=== PATIENT | female | born 1995 | race Hispanic/Latino ===

== ENCOUNTER 2018-10-25 15:11 | Outpatient (CLI) | payer MEDICAID ==
[2018-10-25] MEDS ORDERED: LACTATED RINGERS 1,000 ML ONE (16:06)
[2018-10-25 16:22] LABS: Bacteria,Urine 1+ /HPF (Negative); Bilirubin,Urine NEG (Negative); Blood,Urine NEG (Negative); Color,Urine Yellow (Yellow); Mucus,Urine FEW /HPF; Protein,Urine <15 mg/dL mg/dL (Negative); Urobilinogen,Urine < 2.0 mg/dL (<2.0); WBC,Urine < 1.0 /HPF (0.0-6.0)
[2018-10-25] MEDS ORDERED: LACTATED RINGERS 1,000 ML IV SCH (17:00)
[2018-10-25 17:29] VITALS: BP 103/64
== END 2018-10-25 17:51 | disposition home or self-care (01) ==
LOC: TRG 15:11
PROVIDERS: ATTEND Obstetrics & Gynecology
DX: O47.03 False labor before 37 completed weeks of gestation, third trimester (principal); Z3A.30 30 weeks gestation of pregnancy
CPT/HCPCS: 81001; J7120

== ENCOUNTER 2018-12-03 17:30 | Outpatient (CLI) | payer MEDICAID ==
[2018-12-03 17:52] VITALS: BP 105/70
[2018-12-03] MEDS ORDERED: LACTATED RINGERS 1,000 ML IV SCH (18:00)
[2018-12-03 18:29] LABS: Bacteria,Urine 1+ /HPF (Negative); Bilirubin,Urine NEG (Negative); Blood,Urine NEG (Negative); Color,Urine Straw (Yellow); Mucus,Urine FEW /HPF; Protein,Urine <15 mg/dL mg/dL (Negative); Urobilinogen,Urine < 2.0 mg/dL (<2.0)
[2018-12-03] MEDS ORDERED: BRETHINE SUB-Q ONE (18:51)
[2018-12-03] MEDS ORDERED: VISTARIL PO ONE (21:00)
== END 2018-12-03 20:42 | disposition home or self-care (01) ==
LOC: TRG 17:30
PROVIDERS: ATTEND Obstetrics & Gynecology
DX: O26.853 Spotting complicating pregnancy, third trimester (principal); O26.893 Other specified pregnancy related conditions, third trimester; R10.9 Unspecified abdominal pain; O47.03 False labor before 37 completed weeks of gestation, third trimester; Z3A.35 35 weeks gestation of pregnancy
CPT/HCPCS: 59025; 81001; 96360; 96361; 96372; J3105; J7120; Q0177

== ENCOUNTER 2019-01-06 17:33 | Outpatient (CLI) | payer MEDICAID ==
[2019-01-06] MEDS ORDERED: LACTATED RINGERS 500 ML IV ONE (18:44)
[2019-01-06] MEDS ORDERED: LACTATED RINGERS 1,000 ML IV SCH (19:00)
[2019-01-06 19:03] LABS: Bacteria,Urine 1+ /HPF (Negative); Bilirubin,Urine NEG (Negative); Blood,Urine NEG (Negative); Color,Urine Yellow (Yellow); Mucus,Urine FEW /HPF; Protein,Urine <15 mg/dL mg/dL (Negative); Urobilinogen,Urine < 2.0 mg/dL (<2.0)
[2019-01-06 19:30] LABS: Hematocrit 32.7 % (30.3-42.9); Hemoglobin 10.7 gm/dl (10.1-14.3); Mean Corpuscular HGB Conc 33 % (30-34); Mean Corpuscular Volume 80 fl (79-97); Platelet Count 183 K/mm3 (140-440); Red Blood Count 4.11 M/mm3 (3.65-5.03); Red Cell Distribution Width 16.2 % (13.2-15.2)
[2019-01-06 19:46] LABS: Alanine Aminotransferase 7 units/L (7-56); Uric Acid 5.2 mg/dL (3.5-7.6)
[2019-01-06 20:13] VITALS: BP 112/73
--- NOTE | 2019-01-06 22:58 | Ultrasound Report ---
Limited OB ultrasound with biophysical profile. 01/06/2019. HISTORY: Evaluate well-being. Biophysical profile is normal at 88. survey demonstrates a single viable intrauterine in the cephalic position. Amniotic f luid index is 172 bpm. Amniotic fluid index is normal measuring 9.2 cm. IMPRESSION: 1. Normal biophysical profile 09/23. 2. Single viable intrauterine . Signer Name: Thai Londono MD Signed: 01/06/2019 10:54 PM Workstation Name: [id number]
== END 2019-01-06 22:05 | disposition home or self-care (01) ==
LOC: TRG 17:33
PROVIDERS: ATTEND Obstetrics & Gynecology
DX: O26.893 Other specified pregnancy related conditions, third trimester (principal); R51 Headache; O99.89 Other specified diseases and conditions complicating pregnancy, childbirth and the puerperium; O48.0 Post-term pregnancy; H53.8 Other visual disturbances; O47.03 False labor before 37 completed weeks of gestation, third trimester; Z3A.40 40 weeks gestation of pregnancy
CPT/HCPCS: 36415; 59025; 76815; 76819; 81001; 82565; 83615; 84450; 84460; 84550; 85027; J7120; 96360

== ENCOUNTER 2019-01-12 08:36 | Inpatient (IN) | payer MEDICAID ==
[2019-01-12] MEDS ORDERED: LIDOCAINE (2%) 20 MG/1 ML VIAL 20 ML MDV INFILTRATI NR (10:30)
[2019-01-12] MEDS ORDERED: TERBUTALINE 1 MG/1 ML INJ SUB-Q PRN (10:30)
[2019-01-12] MEDS ORDERED: ePHEDrine SULFATE 50 MG/1 ML INJ IV PRN (10:30)
[2019-01-12] MEDS ORDERED: ONDANSETRON 4 MG/2 ML INJ IV PRN (10:30)
[2019-01-12] MEDS ORDERED: AMPICILLIN/NS 2 GM/100 ML 2 GM/100 ML BAG IV ONE ×2 (10:30→16:00)
[2019-01-12] MEDS ORDERED: fentaNYL 100 MCG/2 ML INJ IV PRN (10:30)
[2019-01-12] MEDS ORDERED: OXYTOCIN 20 UNIT/1000ML DRIP 20 UNITS/1,000 ML BAG IV SCH (11:00)
--- NOTE | 2019-01-12 12:21 | History and Physical Report ---
<MERARY SHAH - Last Filed: 01/12/19 12:16> History of Present Illness Date of examination: 01/12/19 (Post dates IOL) Date of admission: 01/12/2019 Chief complaint: Pt has no c/o ctxs or HAs, pt made aware of GBS positive, tx per protocol History of present illness: EDC Confirmation: 01/05/2019 Gestational Age: 23 weeks Past History : 2 Term Births: 1 Living Children: 1 Para: 1 # 1 Delivery date: 2017 Weeks Gestation: 41 Delivery type: Anesthesia type: epidural Delivery location: [place], [place] Sex: Male weight: 9-15 Comments: anemia Past Medical History: Negative Past Medical History Past Surgical History: Negative Past Surgical History Past Medical History 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 of genital herpes: no Partner hx. of genital herpes: no Rash, Viral, or Febrile illness since last LMP? no Varicella/Chicken Pox Status: Immunized Genetic History Congenital Heart Defect: Mom: no Dad: no Wili Disease: Mom: no Dad: no Thalassemia Mom: no Dad: no Neural Tube Defect Mom: no Dad: no Down's Syndrome Mom: no Dad: no Chase-Sachs Mom: no Dad: no Sickle Cell Disease/Trait Mom: no Dad: no Hemophilia Mom: no Dad: no Muscular Dystrophy Mom: no Dad: no Cystic Fibrosis Mom: no Dad: no Betty Chorea Mom: no Dad: no Mental Retardation Mom: no Dad: no Fragile X Mom: no Dad: no Other Genetic/Chromosomal Disorder Mom: no Dad: yes Comments: sister of trisomy 18 a few hours after Child w/other defect Mom: no Dad: no Enviromental Exposures Xray Exposure: no Medication, drug, or alcohol use since LMP: no Chemical/Other Exposure: no Exposure to Cat Liter: no Hx of Parvovirus (Fifth Disease): no Occupational Exposure to Children: none Current Allergies: No known allergies Past History - Obstetrical History Expected Date of Delivery: 01/05/19 Actual Gestation: 41 Week(s) 0 Day(s) : 2 Para: 1 Hx # Term Pregnancies: 1 Number of Pregnancies: 0 Spontaneous Abortions: 0 Induced : 0 Number of Living Children: 1 Medications and Allergies Allergies Allergy/AdvReac Type Severity Reaction Status Date / Time No Known Allergies Allergy Verified 10/25/18 16:04 Active Meds: Active Medications Ephedrine Sulfate (Ephedrine Sulfate) 10 mg IV Q2M PRN PRN Reason: Hypotension Fentanyl (Sublimaze) 100 mcg IV Q2H PRN PRN Reason: Labor Pain Oxytocin/Sodium Chloride (Pitocin/Ns 20 Unit/1000ml Drip) 20 units in 1,000 mls @ 125 mls/hr IV DIRECT HENRY Oxytocin/Sodium Chloride (Pitocin/Ns 30 Unit/500ml) 30 units in 500 mls @ 4 mls/hr IV Q30MIN HENRY; Protocol Lactated Ringer's (Lactated Ringers) 1,000 mls @ 125 mls/hr IV DIRECT HENRY Ampicillin Sodium (Ampicillin/Ns 1 Gm/50 Ml) 1 gm in 50 mls @ 100 mls/hr IV Q4HR HENRY; Protocol Lidocaine (Xylocaine 2%) 20 ml INFILTRATI ONCE NR Stop: 01/12/19 23:00 Mineral Oil (Mineral Oil) 30 ml PO QHS PRN PRN Reason: Constipation Ondansetron HCl (Zofran) 4 mg IV Q8H PRN PRN Reason: Nausea And Vomiting Terbutaline Sulfate (Brethine) 0.25 mg SUB-Q ONCE PRN PRN Reason: Hyperstimulation/Hypertonicity Stop: 01/12/19 22:00 Results All other labs normal. GBS Positive HBsAg Screen Negative Negative *1 RPR Non Reactive Non Reactive *2 Rubella Antibodies, IgG 3.38 index Immune >0.99 *3 Non-immune <0.90 Equivocal 0.90 - 0.99 Immune >0.99 ABO Grouping O *4 Rh Factor Positive *5 Please note: Prior records for this patient's ABO / Rh type are not available for additional verification. Antibody Screen Negative Negative *6 WBC 8.5 x10E3/uL 3.4-10.8 *7 RBC [L] 3.65 x10E6/uL 3.77-5.28 *8 Hemoglobin [L] 10.0 g/dL 11.1-15.9 *9 Hematocrit [L] 31.8 % 34.0-46.6 *10 MCV 87 fL 79-97 *11 MCH 27.4 pg 26.6-33.0 *12 MCHC [L] 31.4 g/dL 31.5-35.7 *13 RDW 14.4 % 12.3-15.4 *14 Platelets [L] 147 x10E3/uL 150-450 *15 Neutrophils 77 % Not Estab. *16 Lymphs 13 % Not Estab. *17 Monocytes 7 % Not Estab. *18 Eos 2 % Not Estab. *19 Basos 0 % Not Estab. *20 ! Immature Cells <No Reported Value> *21 Neutrophils (Absolute) 6.6 x10E3/uL 1.4-7.0 *22 Lymphs (Absolute) 1.1 x10E3/uL 0.7-3.1 *23 Monocytes(Absolute) 0.6 x10E3/uL 0.1-0.9 *24 Eos (Absolute) 0.1 x10E3/uL 0.0-0.4 *25 Baso (Absolute) 0.0 x10E3/uL 0.0-0.2 *26 ! Immature Granulocytes 1 % Not Estab. *27 ! Immature Grans (Abs) 0.1 x10E3/uL 0.0-0.1 *28 ! NRBC <No Reported Value> *29 Hematology Comments: <No Reported Value> *30 Tests: (2) Panel 971103 ([id number]) HIV Screen 4th Generation wRfx Non Reactive Non Reactive *31 Tests: (3) Gest. Diabetes 1-Hr Screen (505702) ! Gestational Diabetes Screen 89 mg/dL 65-139 *32 According to ADA, a glucose threshold of >139 mg/dL after 50-gram load identifies approximately 80% of women with gestational diabetes mellitus, while the sensitivity is further increased to approximately 90% by a threshold of >129 mg/dL. Tests: (4) HCV Ab w/Rflx to Verification (130506) ! HCV Ab <0.1 s/co ratio 0.0-0.9 *33 Tests: (5) Comment: (298166) ! Comment: SPRCS *34 Non reactive HCV antibody screen is consistent with no HCV infection, unless recent infection is suspected or other evidence exists to indicate HCV infection. Tests: (6) Urine Culture, Routine (605244) Urine Culture, Routine Final report *35 Tests: (7) Result (150112) ! Result 1 No growth *36 Assessment and Plan 23 y.o. at 40.6 wks presenting for IOL, GBS positive, during assessment of pt states she was 2cm on last Thursday in triage. IOL delayed due to no labor rooms available. All orders in EMR. DR. Montano aware of admission and will complete physical examination - Patient Problems (1) Group B Streptococcus carrier state affecting Onset Date: ~01/12/19 Current Visit: Yes Status: Acute Plan to address problem: Ampicillin per protocol (2) 40 weeks gestation of Onset Date: ~01/12/19 Current Visit: Yes Status: Acute Plan to address problem: Pt is 40.6 wks today IOL for post dates <MARICARMEN GONZALEZ - Last Filed: 01/13/19 09:39> History of Present Illness Date of admission: 01/12/19 10:30 Medications and Allergies Active Meds: Active Medications Ephedrine Sulfate (Ephedrine Sulfate) 10 mg IV Q2M PRN PRN Reason: Hypotension Fentanyl (Sublimaze) 100 mcg IV Q2H PRN PRN Reason: Labor Pain Last Admin: 01/13/19 02:35 Dose: 100 mcg Documented by: Oxytocin/Sodium Chloride (Pitocin/Ns 20 Unit/1000ml Drip) 20 units in 1,000 mls @ 125 mls/hr IV DIRECT HENRY Last Admin: 01/13/19 05:40 Dose: 1,200 mls/hr Documented by: Oxytocin/Sodium Chloride (Pitocin/Ns 30 Unit/500ml) 30 units in 500 mls @ 4 mls/hr IV Q30MIN HENRY; Protocol Last Admin: 01/13/19 03:30 Dose: 4 mls/hr, 4 mls/hr Documented by: Lactated Ringer's (Lactated Ringers) 1,000 mls @ 125 mls/hr IV DIRECT HENRY Last Admin: 01/12/19 22:40 Dose: 125 mls/hr Documented by: Fentanyl/Bupivacaine/Sodium Chlor (Fentanyl-Bupiv 2 Mcg/Ml-0.125%) 200 mcg in 100 mls @ 12 mls/hr EPIDURAL TITR HENRY; Protocol Last Infusion: 01/13/19 06:09 Dose: 0 mls/hr Documented by: Mineral Oil (Mineral Oil) 30 ml PO QHS PRN PRN Reason: Constipation Naloxone HCl (Naloxone) 0.2 mg IV Q5M PRN PRN Reason: Respiratory sedation Ondansetron HCl (Zofran) 4 mg IV Q8H PRN PRN Reason: Nausea And Vomiting - Vital Signs Vital signs: Vital Signs Pulse BP 93 H 117/57 01/12/19 13:23 01/12/19 13:23 Temp Pulse Resp BP Pulse Ox 97.8 F 82 18 108/55 96 01/13/19 04:00 01/13/19 06:34 01/13/19 04:00 01/13/19 06:34 01/13/19 05:13 Results Result Diagrams: 01/12/19 13:01 01/12/19 13:01 Abnormal lab results 01/12/19 01/12/19 Range/Units 13:01 13:01 WBC 12.0 H (4.5-11.0) K/mm3 MCH 26 L (28-32) pg RDW 16.7 H (13.2-15.2) % Creatinine 0.6 L (0.7-1.2) mg/dL All other labs normal.
[2019-01-12 13:41] LABS: Hematocrit 33.9 % (30.3-42.9); Hemoglobin 10.9 gm/dl (10.1-14.3); Mean Corpuscular HGB Conc 32 % (30-34); Mean Corpuscular Volume 80 fl (79-97); Platelet Count 186 K/mm3 (140-440); Red Blood Count 4.25 M/mm3 (3.65-5.03); Red Cell Distribution Width 16.7 % (13.2-15.2)
--- NOTE | 2019-01-12 14:01 | Progress Note ---
Assessment and Plan - Patient Problems (1) 41 weeks gestation of Current Visit: Yes Status: Acute Plan to address problem: Will start pitocin, plan of care explained. Questions answered, she voiced understanding and agrees with plan (2) Group B Streptococcus carrier state affecting Onset Date: ~01/12/19 Current Visit: Yes Status: Acute (3) Migraine Current Visit: Yes Status: Chronic (4) Poor dental hygiene Current Visit: Yes Status: Chronic Subjective - Subjective Date of service: 01/12/19 Patient reports: movement normal, contractions, no new complaints, no vaginal bleeding Objective - Vital Signs Vital Signs: Vital Signs - 12hr 01/12/19 13:23 Pulse Rate 93 H Blood Pressure 117/57 - Exam Breasts: deferred Lungs: Normal air movement Vulva: both: normal Uterus: Present: fundal height above umbilicus. Absent: tenderness FHR: category 1 Uterine Contraction Monitor Mode: External Cervical Dilatation: 2.5 Cervical Effacement Percentage: 50 station: -2 Uterine Contraction Pattern: Irregular Extremities: normal Deep Tendon Reflex Grade: Normal +2 - Labs Labs: Abnormal Labs 01/12/19 13:01 WBC 12.0 H MCH 26 L RDW 16.7 H Laboratory Results - last 24 hr 01/12/19 13:01 WBC 12.0 H RBC 4.25 Hgb 10.9 Hct 33.9 MCV 80 MCH 26 L MCHC 32 RDW 16.7 H Plt Count 186
[2019-01-12 14:04] LABS: Alanine Aminotransferase 7 units/L (7-56); Uric Acid 5.7 mg/dL (3.5-7.6)
[2019-01-12] MEDS: OXYTOCIN DRIP 30 UNITS/500 ML BAG IV SCH (14:30)
[2019-01-12] MEDS: LACTATED RINGERS 1,000 ML IV SCH ×2 (14:30→22:40)
--- NOTE | 2019-01-12 19:35 | Progress Note ---
Assessment and Plan Continue pitocin - Patient Problems (1) 41 weeks gestation of Current Visit: Yes Status: Acute (2) Group B Streptococcus carrier state affecting Onset Date: ~01/12/19 Current Visit: Yes Status: Acute (3) Migraine Current Visit: Yes Status: Chronic (4) Poor dental hygiene Current Visit: Yes Status: Chronic Subjective - Subjective Date of service: 01/12/19 Principal diagnosis: Post term IOL Patient reports: movement normal, contractions, no new complaints, no vaginal bleeding Objective - Vital Signs Vital Signs: Vital Signs - 12hr 01/12/19 01/12/19 01/12/19 13:23 14:46 15:46 Pulse Rate 93 H 96 H 100 H Blood Pressure 117/57 106/58 109/64 01/12/19 01/12/19 01/12/19 16:46 17:46 18:46 Pulse Rate 95 H 92 H 94 H Blood Pressure 110/64 133/74 119/82 01/12/19 19:19 Pulse Rate 103 H Blood Pressure 114/64 - Exam Breasts: deferred Cardiovascular: Regular rate Lungs: Normal air movement Abdomen: Absent: tenderness Vulva: both: normal Uterus: Present: fundal height above umbilicus. Absent: tenderness FHR: category 1 Uterine Contraction Monitor Mode: External Cervical Dilatation: 3.5 Cervical Effacement Percentage: 50 station: -2 Uterine Contraction Pattern: Regular Extremities: normal Deep Tendon Reflex Grade: Normal +2 - Labs Labs: Abnormal Labs 01/12/19 01/12/19 13:01 13:01 WBC 12.0 H MCH 26 L RDW 16.7 H Creatinine 0.6 L Laboratory Results - last 24 hr 01/12/19 01/12/19 01/12/19 13:01 13:01 13:01 WBC 12.0 H RBC 4.25 Hgb 10.9 Hct 33.9 MCV 80 MCH 26 L MCHC 32 RDW 16.7 H Plt Count 186 Creatinine 0.6 L Estimated GFR > 60 Uric Acid 5.7 AST 15 ALT 7 Syphilis IgG Antibody Non-reactive Blood Type Antibody Screen 01/12/19 13:03 WBC RBC Hgb Hct MCV MCH MCHC RDW Plt Count Creatinine Estimated GFR Uric Acid AST ALT Syphilis IgG Antibody Blood Type O POSITIVE Antibody Screen Negative
[2019-01-12] MEDS ORDERED: MINERAL OIL 30 ML ORAL LIQD PO PRN (22:00)
[2019-01-12] MEDS: AMPICILLIN/NS 1 GM/50 ML 1 GM/50 ML BAG IV SCH (22:54)
[2019-01-13] MEDS: AMPICILLIN/NS 1 GM/50 ML 1 GM/50 ML BAG IV SCH (03:20)
--- NOTE | 2019-01-13 03:26 | Progress Note ---
Assessment and Plan AROM,scant clear, with placement of IUPC w/o difficulty. Restart Pitocin Plan of care discussed, she agrees - Patient Problems (1) 41 weeks gestation of Current Visit: Yes Status: Acute (2) Group B Streptococcus carrier state affecting Onset Date: ~01/12/19 Current Visit: Yes Status: Acute (3) Migraine Current Visit: Yes Status: Chronic (4) Poor dental hygiene Current Visit: Yes Status: Chronic Subjective - Subjective Date of service: 01/13/19 Principal diagnosis: Post term IOL Patient reports: movement normal, contractions, no new complaints, no vaginal bleeding Objective - Vital Signs Vital Signs: Vital Signs - 12hr 01/12/19 01/12/19 01/12/19 15:46 16:46 17:46 Pulse Rate 100 H 95 H 92 H Blood Pressure 109/64 110/64 133/74 01/12/19 01/12/19 01/12/19 18:46 19:19 19:47 Pulse Rate 94 H 103 H 91 H Blood Pressure 119/82 114/64 108/55 01/12/19 01/12/19 01/12/19 20:47 21:47 22:49 Pulse Rate 88 96 H 86 Blood Pressure 121/58 128/71 129/89 01/13/19 01/13/19 01:47 02:47 Pulse Rate 104 H 93 H Blood Pressure 110/84 129/57 - Exam Breasts: deferred Lungs: Normal air movement Abdomen: Absent: tenderness Vulva: both: normal Uterus: Present: fundal height above umbilicus. Absent: tenderness FHR: category 1 Uterine Contraction Monitor Mode: External Cervical Dilatation: 5 Cervical Effacement Percentage: 70 station: -1 Uterine Contraction Pattern: Irregular Uterine Contraction Intensity: Moderate Extremities: normal Deep Tendon Reflex Grade: Normal +2 - Labs Labs: Abnormal Labs 01/12/19 01/12/19 13:01 13:01 WBC 12.0 H MCH 26 L RDW 16.7 H Creatinine 0.6 L Laboratory Results - last 24 hr 01/12/19 01/12/19 01/12/19 13:01 13:01 13:01 WBC 12.0 H RBC 4.25 Hgb 10.9 Hct 33.9 MCV 80 MCH 26 L MCHC 32 RDW 16.7 H Plt Count 186 Creatinine 0.6 L Estimated GFR > 60 Uric Acid 5.7 AST 15 ALT 7 Syphilis IgG Antibody Non-reactive Blood Type Antibody Screen 01/12/19 13:03 WBC RBC Hgb Hct MCV MCH MCHC RDW Plt Count Creatinine Estimated GFR Uric Acid AST ALT Syphilis IgG Antibody Blood Type O POSITIVE Antibody Screen Negative
[2019-01-13] MEDS: OXYTOCIN DRIP 30 UNITS/500 ML BAG IV SCH (03:30)
[2019-01-13] MEDS ORDERED: SODIUM CHLORIDE P/F VIAL 10 ML 10 ML ONE (04:14)
[2019-01-13] MEDS ORDERED: DEXMEDETOMIDINE 200 MCG/2 ML VIAL IV ONE (04:14)
[2019-01-13] MEDS ORDERED: ePHEDrine SULFATE 50 MG/1 ML INJ IV PRN (04:31)
[2019-01-13] MEDS ORDERED: NALOXONE 2 MG/2 ML INJ IV PRN (04:31)
--- NOTE | 2019-01-13 04:33 | Anesthesia Consultation ---
Anesthesia Consult and Med Hx Date of service: 01/13/19 - Airway Anesthetic Teeth Evaluation: Good ROM Head & Neck: Adequate Mental/Hyoid Distance: Adequate Mallampati Class: Class II Intubation Access Assessment: Probably Good - Pulmonary Exam CTA: Yes - Cardiac Exam Cardiac Exam: RRR - Pre-Operative Health Status ASA Pre-Surgery Classification: ASA3 Proposed Anesthetic Plan: Epidural - Pulmonary Hx Asthma: No - Cardiovascular System Hx Hypertension: No - Central Nervous System Hx Seizures: No Hx Psychiatric Problems: No - Endocrine Hx Renal Disease: No Hx Hypothyroidism: No Hx Hyperthyroidism: No - Hematic Hx Anemia: No Hx Sickle Cell Disease: No - Other Systems Hx Alcohol Use: No Hx Obesity: Yes
[2019-01-13] MEDS ORDERED: fentaNYL-BUPIV 2 MCG/ML-0.125% 200 MCG/100 ML BAG EPIDURAL SCH (05:00)
--- NOTE | 2019-01-13 05:57 | Procedure Note ---
OB Delivery Note - Delivery Date of Delivery: 01/13/19 Surgeon: RUBEN LO Estimated blood loss: 300cc - Vaginal Delivery presentation: vertex Delivery position: OA Intrapartum events: none Delivery induction: oxytocin Delivery augmentation: rupture of membranes, pitocin Delivery monitor: external FHT, external uterine, internal uterine Route of delivery: Delivery placenta: spontaneous (intact) Episiotomy: none Delivery laceration: other (abrasion at perineum and (L) labia minor, all hemostatic, no repair required) Anesthesia: epidural - A at 1 minute: 8 at 5 minutes: 9 Infant Gender: Female (7lbs 11oz)
[2019-01-13] MEDS ORDERED: CARBOPROST TROMETHAMINE 250 MCG/1 ML INJ IM PRN (14:18)
[2019-01-13] MEDS ORDERED: PROMETHAZINE 25 MG TAB PO PRN (14:18)
[2019-01-13] MEDS ORDERED: MAGNESIUM HYDROXIDE (MOM) ORAL LIQD UDC PO PRN (14:18)
[2019-01-13] MEDS ORDERED: diphenhydrAMINE 25 MG CAP PO PRN (14:18)
[2019-01-13] MEDS ORDERED: LANOLIN/ZINC/DIMETHICONE (LANSINOH) 7 GM TP PRN (14:18)
[2019-01-13] MEDS ORDERED: miSOPROStol 100 MCG TAB PR PRN (14:18)
[2019-01-13] MEDS ORDERED: METHYLERGONOVINE MALEATE 0.2 MG/ML VIAL IM PRN (14:18)
[2019-01-13] MEDS ORDERED: ONDANSETRON 4 MG/2 ML INJ IV PRN (14:18)
[2019-01-13] MEDS ORDERED: ACETAMINOPHEN 325 MG TAB PO PRN (14:18)
[2019-01-13] MEDS ORDERED: WITCH HAZEL/ GLYCERIN PAD TP PRN (14:18)
[2019-01-13] MEDS ORDERED: PROMETHAZINE 25 MG RECT SUPP PR PRN (14:18)
[2019-01-13 17:35] LABS: Hematocrit 29.4 % (30.3-42.9); Hemoglobin 9.4 gm/dl (10.1-14.3)
[2019-01-13] MEDS: IBUPROFEN 600 MG TAB PO SCH (20:10)
[2019-01-13 20:31] LABS: Bilirubin,Urine NEG (Negative); Blood,Urine LG (Negative); Color,Urine Yellow (Yellow); Hyaline Casts,Urine 2 /LPF; Mucus,Urine FEW /HPF; Protein,Urine <15 mg/dL mg/dL (Negative)
[2019-01-13 20:36] LABS: RBC,Urine > 182.0 /HPF (0.0-6.0)
[2019-01-14] MEDS: IBUPROFEN 600 MG TAB PO SCH (05:25)
[2019-01-14] MEDS ORDERED: TETANUS,DIPH,PERTUSS(ACELL) VACCINE 0.5 ML SYRINGE IM ONE (05:57)
--- NOTE | 2019-01-14 11:00 | Discharge Summary ---
Providers - Providers Date of Admission: 01/12/19 10:30 Date of discharge: 01/14/19 Attending physician: RUBEN LO 01/13/19 14:18 Consult to [employer] [CONS] Routine Reason For Exam: assistance with , SNS Primary care physician: RUBEN LO Hospitalization Reason for admission: active labor, IUP at term Delivery: Episiotomy: none Laceration: other (Labial abrasion) complications: none Discharge diagnosis: IUP at term delivered [place] baby: female Hospital course: See dictated H&P. Patient was admitted for labor induction and underwent a normal spontaneous vaginal delivery. Her course was benign. She was afebrile throughout her stay. Her day 1 hematocrit was 29.4%. Patient is breast-feeding and desires bilateral tubal ligation for control. Patient desires discharge today Condition at discharge: Good Disposition: DC-01 TO HOME OR SELFCARE - Discharge Diagnoses (1) Active labor at term Status: Acute (2) Group B Streptococcus carrier state affecting Status: Acute (3) 41 weeks gestation of Status: Resolved Plan - Discharge Medications Prescriptions: Ferrous Sulfate [Feosol 325 MG tab] 325 mg PO BID #60 tablet Ibuprofen [Motrin 800 MG tab] 800 mg PO Q6H PRN #30 tablet PRN Reason: Pain - Provider Discharge Summary Activity: no sex for 6 weeks, no strenuous exercise Diet: routine Additional instructions: [] Smoking cessation referral if applicable(refer to patient education folder for contact #) [] Refer to [facility]'s [facility] Booklet Call your doctor immediately for: * Fever > 100.5 * Heavy vaginal bleeding ( >1 pad per hour) * Severe persistent headache * Shortness of breath * Reddened, hot, painful area to leg or breast * Drainage or odor from incision. * - Follow up plan Follow up: RUBEN LO MD [Primary Care Provider] - 7 Days
[2019-01-14 14:05] VITALS: BP 119/74
== END 2019-01-14 14:00 | disposition home or self-care (01) | DRG 775 ==
LOC: LD 08:36 → TRG 08:36 → LD 10:30 → OB 01-13 13:43
PROVIDERS: ADMIT Obstetrics & Gynecology; ATTEND Obstetrics & Gynecology
PROC: 10E0XZZ Delivery of Products of Conception, External Approach (ICD-10-PCS; principal; 2019-01-13)
PROC: 10907ZC Drainage of Amniotic Fluid, Therapeutic from Products of Conception, Via Natural or Artificial Opening (ICD-10-PCS; 2019-01-13)
PROC: 3E0R3BZ Introduction of Anesthetic Agent into Spinal Canal, Percutaneous Approach (ICD-10-PCS; 2019-01-13)
PROC: 00HU33Z Insertion of Infusion Device into Spinal Canal, Percutaneous Approach (ICD-10-PCS; 2019-01-13)
PROC: 3E0234Z Introduction of Serum, Toxoid and Vaccine into Muscle, Percutaneous Approach (ICD-10-PCS; 2019-01-14)
DX: O48.0 Post-term pregnancy (principal); O99.824 Streptococcus B carrier state complicating childbirth; O99.354 Diseases of the nervous system complicating childbirth; G43.909 Migraine, unspecified, not intractable, without status migrainosus; O71.82 Other specified trauma to perineum and vulva; Z3A.41 41 weeks gestation of pregnancy; Z37.0 Single live birth; Z23 Encounter for immunization
CPT/HCPCS: 36415; 81001; 82565; 84450; 84460; 84550; 85014; 85018; 85027; 86592; 86850; 86900; 86901; G0378; A6250; J0290; J2590; J3010; J3490; J7120

== ENCOUNTER 2019-03-09 06:58 | Day surgery (SDC) | payer MEDICAID ==
--- NOTE | 2019-03-09 07:24 | Short Stay Summary ---
Short Stay Documentation Date of service: 03/09/19 Narrative H&P: 23-year-old with undesired fertility. The patient is aware of other contraceptive options. The patient has elected to undergo permanent sterilization. - History Principal diagnosis: undesired fertility Past Medical History: No medical history Past Surgical History: No surgical history Social history: single - Allergies and Medications Current Medications: Allergies No Known Allergies Allergy (Verified 03/08/19 09:40) Home Medications Medication Instructions Recorded Confirmed Last Taken Type No Known Home Medications [No 03/08/19 03/08/19 Unknown History Reported Home Medications] - Physical exam General appearance: no acute distress Integumentary: no rash HEENT: Atraumatic Lungs: Clear to auscultation Breasts: deferred Heart: Regular rate Gastrointestinal: normal Female Genitourinary: deferred Rectal Exam: deferred Extremities: no ischemia Neurological: Normal gait - Brief post op/procedure progress note Date of procedure: 03/09/19 Pre-op diagnosis: undesired fertility Post-op diagnosis: same Procedure: Laparoscopy Bilateral salpingectomy Anesthesia: GETA Surgeon: RUTH AGUILAR Estimated blood loss: minimal Pathology: list (bilateral fallopian tubes) Specimen disposition: to lab - Hospital course Hospital course: The patient was admitted the day of surgery and underwent a laparoscopy and bilateral salpingectomy. Please see operative note for details of surgery. Postoperative course was uneventful. - Disposition Condition at discharge: Good Disposition: DC-01 TO HOME OR SELFCARE Short Stay Discharge Plan Activity: other (pelvic rest for 1 week) Diet: regular Additional Instructions: Follow-up is not required Follow-up is needed Prescriptions: Ibuprofen [Motrin] 800 mg PO Q8HR PRN #60 tablet PRN Reason: Pain, Mild (1-3) HYDROcodone/APAP 5-325 [[place] 5/325] 1 each PO Q6HR PRN #20 tablet PRN Reason: Pain
[2019-03-09] MEDS ORDERED: LACTATED RINGERS 1,000 ML IV SCH (07:32)
[2019-03-09] MEDS ORDERED: BUPIVACAINE/PF (0.5%) 5 MG/1 ML 30 ML VIAL INFILTRATI ONE ×2 (07:40→10:00)
[2019-03-09] MEDS ORDERED: fentaNYL 100 MCG/2 ML INJ IV ONE (07:44)
[2019-03-09] MEDS ORDERED: BACTERIOSTATIC SODIUM CHLORIDE 0.9% 30 ML VIAL INFILTRATI ONE (07:53)
[2019-03-09] MEDS ORDERED: GABAPENTIN 300 MG CAP PO NR (08:00)
[2019-03-09] MEDS ORDERED: CELECOXIB 200 MG CAP PO NR (08:00)
[2019-03-09] MEDS ORDERED: MIDAZOLAM 2 MG/2 ML INJ IV NR (08:00)
[2019-03-09] MEDS ORDERED: LIDOCAINE MPF (2%) 20 MG/1 ML VIAL 5 ML ONE (08:27)
[2019-03-09] MEDS ORDERED: ROCURONIUM 50 MG/5 ML INJ IV ONE (08:27)
[2019-03-09] MEDS ORDERED: PROPOFOL 200 MG/20 ML VIAL IV ONE (08:27)
[2019-03-09] MEDS ORDERED: fentaNYL 250 MCG/5 ML INJ ONE (08:27)
--- NOTE | 2019-03-09 08:51 | Anesthesia Consultation ---
Anesthesia Consult and Med Hx Date of service: 03/09/19 - Airway Anesthetic Teeth Evaluation: Poor ROM Head & Neck: Adequate Mental/Hyoid Distance: Inadequate Mallampati Class: Class II Intubation Access Assessment: Possibly Difficult - Pulmonary Exam CTA: Yes - Cardiac Exam Cardiac Exam: RRR - Pre-Operative Health Status ASA Pre-Surgery Classification: ASA2 Proposed Anesthetic Plan: General - Pulmonary Hx Smoking: Yes (former smoker quit 7 months ago) Hx Respiratory Symptoms: No - Cardiovascular System Hx Hypertension: No Hx Heart Attack/AMI: No - Central Nervous System CVA: No - Gastrointestinal Hx Gastroesophageal Reflux Disease: No - Endocrine Hx Renal Disease: No Hx Liver Disease: No Hx Insulin Dependent Diabetes: No Hx Non-Insulin Dependent Diabetes: No Hx Thyroid Disease: No - Other Systems Hx Obesity: Yes (BMI 30) - Additional Comments Anesthesia Medical History Comments: No hx anesthetic complications.
--- NOTE | 2019-03-09 08:59 | Anesthesia Day of Surgery ---
Anesthesia Day of Surgery - Day of Surgery Patient Examined: Yes Patient H&P Reviewed: Yes Patient is NPO: Yes
[2019-03-09] MEDS ORDERED: SCOPOLAMINE TRANSDERMAL PATCH 72 HR TD NR (09:00)
[2019-03-09] MEDS ORDERED: NEOSTIGMINE 10MG/10 ML INJ MDV ONE (09:53)
[2019-03-09] MEDS ORDERED: dexAMETHasone 20 MG/5 ML VIAL ONE (09:53)
[2019-03-09] MEDS ORDERED: ONDANSETRON 4 MG/2 ML INJ ONE (09:53)
[2019-03-09] MEDS ORDERED: LACTATED RINGERS 1,000 ML ONE (09:53)
[2019-03-09] MEDS ORDERED: GLYCOPYRROLATE 0.4 MG/2 ML INJ ONE (09:53)
--- NOTE | 2019-03-09 10:17 | Operative Report ---
Operative Report Operative Report: Date of surgery: 03/09/2019 Preoperative diagnosis: Unwanted fertility Postoperative diagnosis: Same as above Procedure: Laparoscopy; bilateral salpingectomy Surgeon: Minoo Ramos M.D. Anesthesia: General endotracheal anesthesia Estimated blood loss: Minimal Findings: Normal uterus tubes and ovaries Pathology: Bilateral fallopian tubes Indication: 23-year-old with undesired fertility. The patient has elected for permanent sterilization. Procedure: The patient was taken to the operating room and given general endotracheal anesthesia without complication. The patient is prepped and draped in a normal sterile fashion. A bivalve speculum was placed in the patient's vagina and a single-tooth tenaculum was placed on the anterior lip of the cervix .A uterine acorn manipulator was placed, and the bivalve speculum was then removed. Attention was then turned to the patient's abdomen where a 5 mm infraumbilical skin incision was then made. A Veress needle was placed and peritoneal entry was verified water-filled syringe. Insufflation of the peritoneal cavity was performed with CO2 gas. A 5 mm trocar was placed and the laparoscope was then inserted. The patient was then placed in Trendelenburg. A 7 mm suprapubic skin incision was then made. Under direct visualization a 7 mm trocar was then placed. An additional left lateral 5 mm trocar was placed. General survey of the patient's abdomen revealed normal uterus tubes and ovaries. The fallopian tube was then followed out to the fimbriated end. A grasper was used to elevate the left fallopian tube. The LigaSure device was used to coagulate and transect the mesosalpinx. The left fallopian tube was transected from the uterus and removed through the 7 mm trocar. This was performed on the contralateral side as well. The 7 mm trocar was then removed along with the left 5 mm trocar. The pneumoperitoneum was then released. The 5 mm trocar laparoscope was then removed. The skin incisions were then closed with 4-0 Monocryl. The incisions were injected with quarter percent Marcaine. Dressings were applied to the incision. The vaginal instruments were then removed atraumatically. Then successfully extubated and taken to the recovery room. All sponge laps and needle counts were correct x2.
[2019-03-09] MEDS ORDERED: KETOROLAC 30 MG/1 ML INJ IV ONE (10:20)
[2019-03-09] MEDS ORDERED: KETOROLAC 30 MG/1 ML INJ ONE (10:22)
[2019-03-09] MEDS: HYDROmorphone 1 MG/1 ML INJ IV PRN ×2 (10:35→10:45)
[2019-03-09] MEDS ORDERED: HYDROcodone/ACETAMINOPHEN 5-325 MG TAB PO PRN (10:54)
[2019-03-09 11:02] VITALS: BP 123/80
[2019-03-09] MEDS ORDERED: PHENYLEPHRINE/NS 1,000 MCG/10 ML SYRINGE (OR USE) IV ONE (12:26)
--- NOTE | 2019-03-09 13:17 | Post Anesthesia Evaluation ---
- Post Anesthesia Evaluation Patient Participated: Yes Airway Patent: Yes Stable Respiratory Function: Yes Nausea/Vomiting: No Temp > 96.8F: Yes Pain Manageable: Yes Adequeate Hydration: Yes Anesthesia Complications: No
== END 2019-03-09 11:35 | disposition home or self-care (01) ==
LOC: OR 06:58
PROVIDERS: ATTEND Obstetrics & Gynecology
DX: Z30.2 Encounter for sterilization (principal); G43.909 Migraine, unspecified, not intractable, without status migrainosus; E66.9 Obesity, unspecified; Z87.891 Personal history of nicotine dependence; Z79.899 Other long term (current) drug therapy; Z91.89 Other specified personal risk factors, not elsewhere classified; Z98.890 Other specified postprocedural states
CPT/HCPCS: 58661; 81025; 88302; J1100; J1170; J1885; J2250; J2370; J2405; J2704; J2710; J3010; J7120